=== PATIENT | female | born 1995 | race African-American/Black ===

== ENCOUNTER 2016-10-23 23:23 | Emergency (ER) | payer OTHER ==
[2016-10-23 23:56] LABS: Pregnancy Test - Urine (BHCG) NEGATIVE (NEGATIVE); Pregu Control Background? CLEAR/WHITE (CLR/WHITE); Pregu Control Bar Appear? YES (CONTROL BAR)
[2016-10-23 23:57] LABS: Bilirubin Negative (Negative); Blood, Urine Negative (Negative); Clarity Hazy (Clear); Glucose, Urine (Dipstick) Negative (Negative); Leukocyte Negative (Negative); Nitrite Negative (Negative); Protein, Urine (Dipstick) Negative (Neg-Trace); Urobilinogen 0.2 mg/dL (0.2-1.0); pH, Urine 6.5 (5.0-9.0)
[2016-10-23 23:59] LABS: Bacteria/HPF Rare-Few HPF (None Seen); RBC/HPF None Seen HPF (0-3); WBC/HPF 0-3 HPF (0-3)
[2016-10-24] MEDS ORDERED: traMADol HCl 50 MG TAB ONE (01:00)
[2016-10-24] MEDS ORDERED: Ondansetron ODT 4 MG TAB ONE (01:00)
[2016-10-24] MEDS ORDERED: Naproxen 500 MG TAB ONE (01:00)
== END 2016-10-24 01:20 | disposition home or self-care (01) ==
LOC: MADERS 23:23
DX: R11.2 Nausea with vomiting, unspecified (principal); R19.7 Diarrhea, unspecified; J45.909 Unspecified asthma, uncomplicated
CPT/HCPCS: 81001; 81025; 87086; 99284; Q0162

== ENCOUNTER 2016-12-14 13:46 | Emergency (ER) | payer OTHER, SELFPAY ==
[2016-12-14] MEDS ORDERED: HYDROcodone/Acetaminophen 5/325 mg Tablet ONE (14:21)
[2016-12-14] MEDS ORDERED: Promethazine HCl 25 MG/ML VIAL ONE (14:22)
[2016-12-14] MEDS ORDERED: Ketorolac Tromethamine 60 MG/2 ML VIAL ONE (14:22)
[2016-12-14] MEDS ORDERED: Acetaminophen 325 MG TAB ONE (14:22)
== END 2016-12-14 14:43 | disposition home or self-care (01) ==
LOC: MADERS 13:46
DX: J02.9 Acute pharyngitis, unspecified (principal); J45.909 Unspecified asthma, uncomplicated
CPT/HCPCS: 96372; J1885; J2550

== ENCOUNTER 2016-12-15 23:45 | Emergency (ER) | payer OTHER, SELFPAY ==
[2016-12-16] MEDS ORDERED: HYDROcodone/Acetaminophen 5/325 mg Tablet ONE (00:55)
== END 2016-12-16 00:55 | disposition home or self-care (01) ==
LOC: MADERS 23:45
DX: B27.90 Infectious mononucleosis, unspecified without complication (principal); J45.909 Unspecified asthma, uncomplicated; Z79.899 Other long term (current) drug therapy
CPT/HCPCS: 96372; J1040

== ENCOUNTER 2018-02-25 19:12 | Emergency (ER) | payer OTHER, SELFPAY ==
[2018-02-25] MEDS ORDERED: Triple Antibiotic Oint 1 GM Packet ONE (20:14)
== END 2018-02-25 20:20 | disposition home or self-care (01) ==
LOC: MADERS 19:12
DX: S61.211A Laceration without foreign body of left index finger without damage to nail, initial encounter (principal); J45.909 Unspecified asthma, uncomplicated; W26.8XXA Contact with other sharp object(s), not elsewhere classified, initial encounter
CPT/HCPCS: 99282

== ENCOUNTER 2018-04-26 15:46 | Emergency (ER) | payer BC, SELFPAY ==
[2018-04-26] MEDS ORDERED: Ibuprofen 800 MG TAB ONE (16:10)
--- NOTE | 2018-04-26 17:14 | RAD ---
PA AND LATERAL VIEWS OF THE CHEST: 04/26/18 HISTORY: Cough. FINDINGS: The heart size is normal. The lungs are expanded without focal areas of consolidation, pneumothorax o r pleural effusions. Bony thorax is normal. IMPRESSION: Normal exam. POS: [facility]
== END 2018-04-26 17:10 | disposition home or self-care (01) ==
LOC: MADERS 15:46
DX: B34.9 Viral infection, unspecified (principal); J45.909 Unspecified asthma, uncomplicated
CPT/HCPCS: 71046; 87081; 87430; 87804

== ENCOUNTER 2018-06-13 18:22 | Emergency (ER) | payer OTHER, SELFPAY | END 2018-06-13 19:05 | disposition left against medical advice (07) | LOC: MADERS 18:22 | DX: Z53.21 Procedure and treatment not carried out due to patient leaving prior to being seen by health care provider (principal) ==

== ENCOUNTER 2018-10-06 19:50 | Emergency (ER) | payer OTHER, SELFPAY ==
[2018-10-06 20:29] LABS: #Basophils 0.1 thou/uL (0.0-0.2); #Eosinphils 0.3 thou/uL (0.0-0.7); #Lymphocytes 1.4 thou/uL (1.20-3.40); #Monocytes 0.6 thou/uL (0.11-0.59); %Basophils 1.6 % (0.0-1.0); %Eosinophils 5.7 % (0.0-10.0); %Lymphocytes 26.2 % (21.0-51.0); %Monocytes 11.3 % (0.0-10.0); %Neutrophils 55.2 % (42.0-75.0); Hemoglobin 13.1 g/dL (12.0-16.0); Mean Corpuscular Hemoglobin 28.9 pg (27.0-31.0); Mean Corpuscular Volume 90.3 fL (78.0-98.0); Mean Platelet Volume 8.7 fL (7.4-10.4); Platelet Count 194 thou/uL (130-400); RBC Distribution Width 13.1 % (11.5-14.5); Red Blood Cell (RBC) Count 4.55 mill/uL (4.20-5.40); White Blood Cell (WBC) Count 5.4 thou/uL (4.8-10.8)
[2018-10-06 20:37] LABS: Prothrombin Time 13.6 SEC (12.0-14.7)
[2018-10-06 20:42] LABS: BHCG - Serum Negative (NEGATIVE); Pregs Control Background? CLEAR/WHITE (CLR/WHITE); Pregs Control Bar Appear? YES (CONTROL BAR)
[2018-10-06 20:48] LABS: ALT (SGPT) 19 U/L (8-55); AST (SGOT) 14 U/L (5-34); Albumin 3.8 g/dL (3.5-5.0); Alkaline Phosphatase 51 U/L (40-150); Anion Gap 10 mmol/L (10-20); BUN (Urea Nitrogen) 9 mg/dL (7.0-18.7); Bilirubin, Total 0.7 mg/dL (0.2-1.2); Calc. Creatinine Clearance 0 mL/min (70-130); Carbon Dioxide 24 mmol/L (22-29); Chloride 110 mmol/L (98-107); Estimated GFR-MDRD 89; Globulin 3.3 g/dL (2.4-3.5); Glucose 129 mg/dL (70-105); Potassium 3.7 mmol/L (3.5-5.1); Protein, Total 7.1 g/dL (6.0-8.3); Sodium 140 mmol/L (136-145)
== END 2018-10-06 21:40 | disposition home or self-care (01) ==
LOC: MADERS 19:50
DX: N93.9 Abnormal uterine and vaginal bleeding, unspecified (principal)
CPT/HCPCS: 36415; 80053; 84703; 85025; 85610; 99283

== ENCOUNTER 2018-10-28 00:25 | Emergency (ER) | payer BC, SELFPAY | END 2018-10-28 00:58 | disposition home or self-care (01) | LOC: MADERS 00:25 | DX: I88.9 Nonspecific lymphadenitis, unspecified (principal) | CPT/HCPCS: 99282 ==

== ENCOUNTER 2020-02-16 17:26 | Emergency (ER) | payer OTHER ==
[2020-02-16] MEDS ORDERED: Acetaminophen 500 MG TAB ONE (18:29)
[2020-02-16 18:31] LABS: Bilirubin Negative (Negative); Blood, Urine Moderate (Negative); Glucose, Urine (Dipstick) Negative (Negative); Ketone, Urine Negative (Negative); Leukocyte Small (Negative); Nitrite Negative (Negative); Protein, Urine (Dipstick) Negative (Neg-Trace)
[2020-02-16 18:32] LABS: Clarity Cloudy (Clear)
[2020-02-16 18:33] LABS: WBC/HPF 21-50 HPF (0-3)
[2020-02-16 18:34] LABS: Bacteria/HPF 2+ HPF (None Seen)
[2020-02-16 18:38] LABS: #Basophils 0.1 thou/uL (0.0-0.2); #Eosinphils 0.3 thou/uL (0.0-0.7); #Lymphocytes 2.2 thou/uL (1.20-3.40); #Monocytes 1.1 thou/uL (0.11-0.59); #Neutrophils 5.5 thou/uL (1.40-6.50); %Basophils 1.5 % (0.0-1.0); %Eosinophils 3.1 % (0.0-10.0); %Lymphocytes 23.5 % (21.0-51.0); %Monocytes 11.9 % (0.0-10.0); Hemoglobin 10.4 g/dL (12.0-16.0); Mean Corpuscular HGB CONC 32.8 g/dL (32.0-36.0); Mean Corpuscular Hemoglobin 29.1 pg (27.0-31.0); Mean Corpuscular Volume 88.7 fL (78.0-98.0); Mean Platelet Volume 8.4 fL (7.4-10.4); Platelet Count 239 thou/uL (130-400); RBC Distribution Width 13.1 % (11.5-14.5); Red Blood Cell (RBC) Count 3.59 mill/uL (4.20-5.40); White Blood Cell (WBC) Count 9.2 thou/uL (4.8-10.8)
[2020-02-16 18:39] LABS: ALT (SGPT) 10 U/L (8-55); AST (SGOT) 12 U/L (5-34); Albumin 3.1 g/dL (3.5-5.0); Alkaline Phosphatase 59 U/L (40-110); Anion Gap 12 mmol/L (10-20); BUN (Urea Nitrogen) 6 mg/dL (7.0-18.7); Bilirubin, Total 0.3 mg/dL (0.2-1.2); Calc. Creatinine Clearance 0 mL/min (70-130); Calcium 8.3 mg/dL (7.8-10.44); Carbon Dioxide 21 mmol/L (22-29); Chloride 106 mmol/L (98-107); Estimated GFR-MDRD Greater than 90; Glucose 92 mg/dL (70-105); Potassium 3.4 mmol/L (3.5-5.1); Protein, Total 6.1 g/dL (6.0-8.3)
[2020-02-16 18:41] LABS: Sodium 136 mmol/L (136-145)
== END 2020-02-16 19:30 | disposition home or self-care (01) ==
LOC: MADERS 17:26
DX: O12.03 Gestational edema, third trimester (principal); O23.41 Unspecified infection of urinary tract in pregnancy, first trimester; M79.89 Other specified soft tissue disorders; M54.9 Dorsalgia, unspecified; O99.513 Diseases of the respiratory system complicating pregnancy, third trimester; J45.909 Unspecified asthma, uncomplicated; Z3A.37 37 weeks gestation of pregnancy
CPT/HCPCS: 80053; 81003; 81015; 85025; 99283

== ENCOUNTER 2020-12-30 21:55 | Emergency (ER) | payer OTHER ==
[2020-12-30 22:25] LABS: Bilirubin Negative (Negative); Blood, Urine Negative (Negative); Clarity Clear (Clear); Glucose, Urine (Dipstick) Negative (Negative); Ketone, Urine Negative (Negative); Leukocyte Negative (Negative); Nitrite Negative (Negative); Protein, Urine (Dipstick) Negative (Neg-Trace); Urobilinogen 0.2 mg/dL (Less than 2)
[2020-12-30 22:26] LABS: Pregnancy Test - Urine (BHCG) Negative (Negative)
[2020-12-30 22:27] LABS: Pregu Control Background? CLEAR/WHITE (CLR/WHITE); Pregu Control Bar Appear? YES (CONTROL BAR); Specific Gravity 1.025 (1.002-1.036)
== END 2020-12-30 22:43 | disposition home or self-care (01) ==
LOC: MADERS 21:55
DX: K29.00 Acute gastritis without bleeding (principal); J45.909 Unspecified asthma, uncomplicated
CPT/HCPCS: 81003; 81025; 99284

== ENCOUNTER 2021-02-14 22:59 | Emergency (ER) | payer OTHER, SELFPAY ==
[2021-02-15 21:49] LABS: SARS-CoV-2 PCR by NAA Not Detected (NotDetected)
== END 2021-02-15 00:30 | disposition home or self-care (01) ==
LOC: MADERS 22:59
DX: B34.9 Viral infection, unspecified (principal); Z20.822 Contact with and (suspected) exposure to COVID-19; J45.909 Unspecified asthma, uncomplicated
CPT/HCPCS: 99283; U0003; U0005

== ENCOUNTER 2021-05-27 13:26 | Emergency (ER) | payer SELFPAY ==
[2021-05-27 14:30] LABS: Bilirubin Negative (Negative); Blood, Urine Negative (Negative); Clarity Hazy (Clear); Glucose, Urine (Dipstick) Negative (Negative); Ketone, Urine Negative (Negative); Leukocyte Trace (Negative); Nitrite Positive (Negative); Protein, Urine (Dipstick) Negative (Neg-Trace); Urobilinogen 0.2 mg/dL (Less than 2)
[2021-05-27 14:33] LABS: Pregnancy Test - Urine (BHCG) Indeterminate (Negative)
[2021-05-27 14:34] LABS: Pregu Control Background? CLEAR/WHITE (CLR/WHITE); Pregu Control Bar Appear? YES (CONTROL BAR)
[2021-05-27 14:37] LABS: Bacteria/HPF 3+ HPF (None Seen); RBC/HPF 0-3 HPF (0-3)
[2021-05-27 14:57] LABS: BHCG - Serum POSITIVE (NEGATIVE); Pregs Control Background? CLEAR/WHITE (CLR/WHITE); Pregs Control Bar Appear? YES (CONTROL BAR)
== END 2021-05-27 14:50 | disposition home or self-care (01) ==
LOC: MADERS 13:26
DX: O99.891 Other specified diseases and conditions complicating pregnancy (principal); R11.0 Nausea; O99.519 Diseases of the respiratory system complicating pregnancy, unspecified trimester; J45.909 Unspecified asthma, uncomplicated
CPT/HCPCS: 36415; 81003; 81015; 81025; 84702; 84703; 99284

== ENCOUNTER 2021-06-18 01:29 | Emergency (ER) | payer MEDICAID | END 2021-06-18 02:29 | disposition home or self-care (01) | LOC: MADERS 01:29 | DX: O23.591 Infection of other part of genital tract in pregnancy, first trimester (principal); Z3A.01 Less than 8 weeks gestation of pregnancy | CPT/HCPCS: 84702; 99283 ==

== ENCOUNTER 2022-01-07 12:14 | Emergency (ER) | payer BC, OTHER ==
[2022-01-07] MEDS ORDERED: Orphenadrine Citrate 60 MG/2 ML VIAL ONE (12:42)
[2022-01-07] MEDS ORDERED: Ketorolac Tromethamine 30 MG/ML VIAL ONE (12:42)
== END 2022-01-07 13:25 | disposition home or self-care (01) ==
LOC: MADERS 12:14
DX: M62.830 Muscle spasm of back (principal); X50.0XXA Overexertion from strenuous movement or load, initial encounter
CPT/HCPCS: 96372; 99283; J1885; J2360

== ENCOUNTER 2022-03-16 21:05 | Emergency (ER) | payer BC, OTHER | END 2022-03-16 22:00 | disposition home or self-care (01) | LOC: MADERS 21:05 | DX: M79.18 Myalgia, other site (principal); J44.9 Chronic obstructive pulmonary disease, unspecified | CPT/HCPCS: 99283 ==

== ENCOUNTER 2022-04-24 04:40 | Emergency (ER) | payer BC, OTHER ==
[2022-04-24] MEDS ORDERED: Ibuprofen 600 MG TAB ONE (05:39)
[2022-04-24] MEDS ORDERED: Acetaminophen 325 MG TAB ONE (05:39)
[2022-04-24 05:54] LABS: Bilirubin Negative (Negative); Blood, Urine Moderate (Negative); Clarity Clear (Clear); Glucose, Urine (Dipstick) Negative (Negative); Ketone, Urine Negative (Negative); Leukocyte Negative (Negative); Nitrite Negative (Negative); Protein, Urine (Dipstick) Negative (Neg-Trace); Urobilinogen 0.2 mg/dL (Less than 2); pH, Urine 7.5 (5.0-9.0)
[2022-04-24 06:01] LABS: Bacteria/HPF None Seen HPF (None Seen); Squamous Epithelial 0-3 HPF (0-3); WBC/HPF 0-3 HPF (0-3)
== END 2022-04-24 06:54 | disposition home or self-care (01) ==
LOC: MADERS 04:40
DX: J06.9 Acute upper respiratory infection, unspecified (principal); J45.909 Unspecified asthma, uncomplicated; Z20.822 Contact with and (suspected) exposure to COVID-19
CPT/HCPCS: 71045; 81003; 81015; 87804; 93005; U0003; U0005

== ENCOUNTER 2022-06-26 19:43 | Emergency (ER) | payer OTHER ==
[2022-06-26 20:17] LABS: Pregnancy Test - Urine (BHCG) Negative (Negative); Pregu Control Background? CLEAR/WHITE (CLR/WHITE); Pregu Control Bar Appear? YES (CONTROL BAR)
[2022-06-26 20:21] LABS: Bilirubin Negative (Negative); Blood, Urine Negative (Negative); Clarity Clear (Clear); Glucose, Urine (Dipstick) Negative (Negative); Ketone, Urine Negative (Negative); Leukocyte Negative (Negative); Nitrite Negative (Negative); Protein, Urine (Dipstick) Negative (Neg-Trace); Urobilinogen 0.2 mg/dL (Less than 2); pH, Urine 5.5 (5.0-9.0)
== END 2022-06-26 20:46 | disposition home or self-care (01) ==
LOC: MADERS 19:43
DX: N93.9 Abnormal uterine and vaginal bleeding, unspecified (principal)
CPT/HCPCS: 81003; 81025; 99284

== ENCOUNTER 2022-08-29 11:07 | Emergency (ER) | payer OTHER ==
[2022-08-29 11:43] LABS: Bilirubin Negative (Negative); Blood, Urine Negative (Negative); Clarity Clear (Clear); Glucose, Urine (Dipstick) Negative (Negative); Ketone, Urine Negative (Negative); Leukocyte Negative (Negative); Nitrite Negative (Negative); Protein, Urine (Dipstick) Negative (Neg-Trace); Specific Gravity, Urine 1.025 (1.005-1.030); Urobilinogen 0.2 mg/dL (Less than 2)
[2022-08-29 12:02] LABS: #Basophils 0.1 thou/uL (0.0-0.2); #Eosinphils 0.1 thou/uL (0.0-0.7); #Lymphocytes 1.6 thou/uL (1.20-3.40); #Monocytes 0.8 thou/uL (0.11-0.59); #Neutrophils 4.2 thou/uL (1.40-6.50); %Basophils 0.9 % (0.0-1.0); %Eosinophils 2.2 % (0.0-10.0); %Lymphocytes 23.1 % (21.0-51.0); %Monocytes 11.1 % (0.0-10.0); %Neutrophils 62.7 % (42.0-75.0); Hemoglobin 12.8 g/dL (12.0-16.0); Mean Corpuscular HGB CONC 32.7 g/dL (32.0-36.0); Mean Corpuscular Hemoglobin 29.4 pg (27.0-31.0); Mean Corpuscular Volume 89.8 fl (78.0-98.0); Mean Platelet Volume 9.5 fL (7.4-10.4); Platelet Count 260 10x3/uL (130-400); RBC Distribution Width 14.2 % (11.5-14.5); Red Blood Cell (RBC) Count 4.35 mill/uL (4.20-5.40); White Blood Cell (WBC) Count 6.7 10x3/uL (4.8-10.8)
[2022-08-29 12:14] LABS: BHCG - Serum POSITIVE (NEGATIVE); Pregs Control Background? CLEAR/WHITE (CLR/WHITE); Pregs Control Bar Appear? YES (CONTROL BAR)
[2022-08-29 12:16] LABS: ALT (SGPT) 16 U/L (8-55); AST (SGOT) 14 U/L (5-34); Albumin 3.9 g/dL (3.5-5.0); Alkaline Phosphatase 40 U/L (40-110); Anion Gap 11 mmol/L (10-20); BUN (Urea Nitrogen) 7 mg/dL (7.0-18.7); Bilirubin, Total 0.8 mg/dL (0.2-1.2); Calc. Creatinine Clearance 0 mL/min (70-130); Carbon Dioxide 22 mmol/L (22-29); Chloride 108 mmol/L (98-107); Estimated GFR 95; Globulin 3.3 g/dL (2.4-3.5); Glucose 90 mg/dL (70-105); Potassium 3.6 mmol/L (3.5-5.1); Protein, Total 7.2 g/dL (6.0-8.3); Sodium 137 mmol/L (136-145)
== END 2022-08-29 12:41 | disposition home or self-care (01) ==
LOC: MADERS 11:07
DX: O99.891 Other specified diseases and conditions complicating pregnancy (principal); M54.50 Low back pain, unspecified; Z3A.01 Less than 8 weeks gestation of pregnancy
CPT/HCPCS: 36415; 80053; 81003; 84702; 84703; 85025; 99283